=== PATIENT | male | born 1970 | race Caucasian/White ===

== ENCOUNTER 2017-12-27 14:21 | Outpatient (CLI) | payer OTHER | END 2017-12-27 14:37 | disposition home or self-care (01) | LOC: LAB 14:21 | DX: D64.89 Other specified anemias (principal); E11.9 Type 2 diabetes mellitus without complications; E78.2 Mixed hyperlipidemia; I10 Essential (primary) hypertension; E03.8 Other specified hypothyroidism; E55.9 Vitamin D deficiency, unspecified; R97.20 Elevated prostate specific antigen [PSA]; R29.898 Other symptoms and signs involving the musculoskeletal system ==

== ENCOUNTER 2024-01-08 11:34 | Emergency (ER) | payer OTHER ==
[~2024-01-08] VITALS: Ht 170.2 cm; Wt 93.0 kg
[2024-01-08] MEDS ORDERED: ATORVASTATIN CA10 MG PO (11:53)
[2024-01-08] MEDS ORDERED: CARVEDILOL ER40 MG PO (11:53)
[2024-01-08] MEDS ORDERED: HYDROCHLOROTH12.5 M2 PO (11:54)
[2024-01-08] MEDS ORDERED: FENOFIBRATE50 MG PO (11:54)
[2024-01-08] MEDS ORDERED: ISOSORBIDE DINI30 MG PO (11:54)
== END 2024-01-08 13:57 | disposition home or self-care (01) ==
LOC: ER 11:36
DX: S51.012A Laceration without foreign body of left elbow, initial encounter (principal); X58.XXXA Exposure to other specified factors, initial encounter; Y93.89 Activity, other specified; Y92.89 Other specified places as the place of occurrence of the external cause; Y99.8 Other external cause status; I10 Essential (primary) hypertension

== ENCOUNTER 2024-01-23 16:15 | Emergency (ER) | payer OTHER ==
[~2024-01-23] VITALS: Ht 170.2 cm; Wt 90.7 kg
[~2024-01-23 16:15] MED LIST: ATORVASTATIN CA10 MG PO; CARVEDILOL ER40 MG PO; FENOFIBRATE50 MG PO; HYDROCHLOROTH12.5 M2 PO; ISOSORBIDE DINI30 MG PO
[2024-01-23 17:49] VITALS: BP 150/83; O2SAT 99
== END 2024-01-23 17:49 | disposition home or self-care (01) ==
LOC: ER 16:16
DX: Z48.02 Encounter for removal of sutures (principal)